=== PATIENT | male | born 1945 | race Caucasian/White ===

== ENCOUNTER 2022-07-21 08:11 | Day surgery (SDC) | payer MEDICARE, BC ==
[2022-07-21] VITALS (8 sets, daily range): BP systolic 94–143; BP diastolic 59–95; PULSE 50–56; TEMP 97.9
[~2022-07-21] VITALS: Ht 172.7 cm; Wt 75.0 kg
[2022-07-21 09:17] LABS: HEMATOCRIT 47.8 % (42.0-52.0); HEMOGLOBIN 16.2 g/dl (13.5-18.0); MEAN CELL VOLUME 97 fl (80.0-100.0); MEAN CORPUSCULAR HEMOGLOBIN 33 pg (27-31); MEAN CORPUSCULAR HGB CONC 34 g/dl (33.0-37.0); MEAN PLATELET VOLUME 9.6 fl (7.4-10.4); PLATELET COUNT 257 K/mm3 (130-400); RED BLOOD COUNT 4.93 M/mm3 (4.20-5.60); REDCELL DISTRIBUTION WIDTH-CV 12.8 % (11.5-14.5)
[2022-07-21 09:30] LABS: PROTHROMBIN TIME 11.3 SECONDS (9.7-12.8)
[2022-07-21 09:31] LABS: CALCIUM 9.4 mg/dL (8.4-10.2); CREATININE, serum 0.9 mg/dL (0.72-1.25); POTASSIUM 4.2 mmol/L (3.5-4.5)
--- NOTE | 2022-07-21 09:31 | NUR ---
Initial visit; Patient and his family thanked Licensed Practical Nurse for offering prayer for Vinnie prior to his surgical procedure. Licensed Practical Nurse offered encouragement and assurance along with prayer and God's blessings and left patient and family smiling.
[2022-07-21 09:32] LABS: PARTIAL THROMBOPLASTIN TIME 36.2 SECONDS (26.0-37.0)
[2022-07-21] MEDS ORDERED: PROAIR HFA0.09 MG/AC IH (09:47)
[2022-07-21] MEDS ORDERED: REFRESH TEARS 330 ML OP (09:48)
[2022-07-21] MEDS ORDERED: LIPITOR 80MG80 MG PO (09:48)
[2022-07-21] MEDS ORDERED: TOPROL XL100 MG PO (09:49)
[2022-07-21] MEDS ORDERED: RESTASIS MULTI5.5 ML OP (09:49)
[2022-07-21] MEDS ORDERED: NITROSTAT0.4 MG/TAB SL (09:50)
[2022-07-21] MEDS ORDERED: STIOLTO RESPIMAT4 GM IH (09:50)
[2022-07-21] MEDS ORDERED: ASPIRIN E.C. 8181 MG PO (09:50)
[2022-07-21] MEDS ORDERED: VITAMIN B12 781 TAB PO (09:51)
[2022-07-21] MEDS ORDERED: VITAMIN D31000 IU PO (09:51)
--- NOTE | 2022-07-21 11:30 | NUR ---
SEE MERGE DOCUMENTATION FOR MEDICATION ADMINISTRATION AND INTRA/POST PROCEDURE SEDATION ASSESSMENTS.
[2022-07-21] MEDS ORDERED: IMDUR 60MG60 MG/TAB PO (12:02)
--- NOTE | 2022-07-21 12:20 | NUR ---
Pt back to [facility] after LHC. Pt is awake and alert, relaxed, resting supine on stretcher. TR band in place, cms intact distal. sr with occasional pvcs on monitor. Pt and /son updated on poc, lunch ordered. call light in reach.
--- NOTE | 2022-07-21 15:15 | NUR ---
Pt ready to go at this time. TR band has been deflated with no problem. Site dressed wtih bandaid, folded 2x2 and coban. I have reviewed dc/rx and fu instructions with pt and , both of whom verbalize understanding. IV dc'd with cath intact, dressing applied. Pt escorted to exit via wheelchair.
== END 2022-07-21 15:30 | disposition home or self-care (01) ==
LOC: EDBD 08:11 → COL.CAR 08:11
PROVIDERS: Internal Medicine Cardiovascular Disease
DX: I25.10 Atherosclerotic heart disease of native coronary artery without angina pectoris (principal); I21.4 Non-ST elevation (NSTEMI) myocardial infarction
CPT/HCPCS: C1760; J1644; J2250; J3010